=== PATIENT | female | born 1995 | race Two or more races ===

== ENCOUNTER 2024-09-22 21:19 | Emergency (ER) | payer MEDICAID, OTHER ==
[~2024-09-22] VITALS: Ht 160 cm; Wt 49.9 kg
[2024-09-22] MEDS ORDERED: METOCLOPRAMIDE HCL 10 MG/2 ML VIAL ONE (21:41)
[2024-09-22 21:53] LABS: BASOPHILS # (AUTO) 0.1 K/UL (0.0-0.2); BASOPHILS % (AUTO) 0.9 % (0.0-2.0); EOSINOPHILS # (AUTO) 0.6 K/uL (0.0-0.7); HEMATOCRIT 37.6 % (31.2-41.9); HEMOGLOBIN 12.7 g/dL (10.9-14.3); LYMPHOCYTES % (AUTO) 36.1 % (20.5-51.5); MEAN CORPUSCULAR HEMOGLOBIN 31.2 uug (24.7-32.8); MEAN CORPUSCULAR HGB CONC 34 g/dL (32.3-35.6); MEAN CORPUSCULAR VOLUME 92.4 fL (75.5-95.3); MONOCYTES # (AUTO) 0.5 K/uL (0.1-1.30); MONOCYTES % (AUTO) 6.4 % (0.0-11.0); NEUTROPHILS # (AUTO) 4.1 K/uL (1.8-8.9); NEUTROPHILS % (AUTO) 49.6 % (38.5-71.5); PLATELET COUNT (AUTO) 231 K/uL (179-408); RED BLOOD CELL COUNT(AUTO) 4.07 MIL/uL (3.63-4.92); RED CELL DISTRIBUTION WIDTH 13.5 % (12.3-17.7); WHITE BLOOD COUNT (AUTO) 8.3 K/uL (3.8-11.8)
[2024-09-22] MEDS: IV NORMAL SALINE 1000 ML BAG IV ONE (21:54)
[2024-09-22] MEDS: METOCLOPRAMIDE HCL 10 MG/2 ML VIAL IV ONE (21:54)
[2024-09-22 21:56] LABS: DIFFERENTIAL COMMENT 1
[2024-09-22 22:01] LABS: CALCIUM 8.5 mg/dL (8.5-10.1); CARBON DIOXIDE 27 mmol/L (21-32); CHLORIDE 105 mmol/L (98-107); CREATININE 0.5 mg/dL (0.6-1.3); GLUCOSE 91 mg/dL (74-106); POTASSIUM 3.3 mmol/L (3.5-5.1); SODIUM SERUM 142 mmol/L (136-145); UREA NITROGEN, BLOOD 5 mg/dL (7-18)
[2024-09-22 22:06] LABS: ALANINE AMINOTRANSFERASE 22 U/L (14-59); ALBUMIN 4.1 g/dL (3.4-5.0); ALKALINE PHOSPHATASE 74 U/L (50-136); ASPARTATE AMINOTRANSFERASE 12 U/L (15-37); BILIRUBIN,DIRECT 0.1 mg/dL (0.0-0.2); BILIRUBIN,TOTAL 0.1 mg/dL (0.2-1.0); TOTAL PROTEIN, SERUM 7.8 g/dL (6.4-8.2)
[2024-09-22 22:15] VITALS: BP 107/72; TEMP 97.9
[2024-09-22 22:22] VITALS: O2SAT 96
[2024-09-22 22:22] LABS: ETHANOL 271 MG/DL (0-10)
== END 2024-09-22 22:19 | disposition left against medical advice (07) ==
LOC: ER 21:19 → EDBD 21:19 → ER 22:19
DX: F10.129 Alcohol abuse with intoxication, unspecified (principal); Y90.0 Blood alcohol level of less than 20 mg/100 ml
CPT/HCPCS: 80076; 80048; 85025; 99283; 96374; 80320; J2765; J7040; A4606; A4663; G0480